=== PATIENT | male | born 1965 | race Caucasian/White ===

== ENCOUNTER 2021-01-17 20:29 | Emergency (ER) | payer MEDICARE, OTHER ==
[2021-01-17 20:32] VITALS: RESP 18; TEMP 98.4
[2021-01-17] MEDS ORDERED: SODIUM CHLORIDE 0.9% 1,000 ML IV STA (20:37)
[2021-01-17] MEDS ORDERED: GLUCAGON 1 MG/ML VIAL IVP STA (20:37)
--- NOTE | 2021-01-17 20:40 | ED ---
General Adult HPI - General Chief complaint: ENT Stated complaint: food in throat Source: patient Mode of arrival: wheelchair Limitations: no limitations - History of Present Illness Initial comments: Dictation was produced using [employer] dictation software. please excuse any grammatical, word or spelling errors. Chief Complaint: 55-year-old male presents with steak in throat History of Present Illness: Patient 55-year-old male. He has history of dysphagia suffered from previous stroke. He was at the [facility] He took a bite of some steak and perhaps did not chew it enough. He swallowed it feels like it stuck in his throat. He states that his trouble swallowing fluids. The ROS documented in this emergency department record has been reviewed and confirmed by me. Those systems with pertinent positive or negative responses have been documented in the HPI. All other systems are other negative and/or noncontributory. PHYSICAL EXAM: General Impression: Alert and oriented x3, acute distress, mildly drooling HEENT: Normocephalic atraumatic, extra-ocular movements intact, pupils equal and reactive to light bilaterally, mucous membranes moist. Cardiovascular: Heart regular rate and rhythm Chest: Able to complete full sentences, no retractions, no tachypnea Abdomen: abdomen soft, non-tender, non-distended, no organomegaly Musculoskeletal: Pulses present and equal in all extremities, no peripheral edema Motor: no focal deficits noted Neurological: CN II-XII grossly intact, no focal motor or sensory deficits noted Skin: Intact with no visualized rashes Psych: Normal affect and mood ED course: 55-year-old male with esophageal foreign body. Vital signs upon arrival are within acceptable limits. Glucagon and soda pop was trialed with no improvement of symptoms. Dr. Ambrose was called. Spoke with Dr. Ambrose at 8:40 PM who will arrange for endoscopy. Endoscopy was performed with removal foreign body. Patient recovered from sedation. Patient be discharged with follow-up to GI clinic. - Related Data Home Medications Medication Instructions Recorded Confirmed Atorvastatin Calcium [Lipitor] 80 mg PO HS 12/05/13 06/21/16 Omeprazole [PriLOSEC] 20 mg PO BID 12/05/13 06/21/16 Ezetimibe [Zetia] 10 mg PO HS 12/31/15 06/21/16 Triamterene/Hydrochlorothiazid 1 tab PO DAILY 12/31/15 06/21/16 [Maxzide 37.5-25] Aspirin 325 mg PO DAILY 06/21/16 06/21/16 HYDROcodone/APAP 10-325MG [[place] 1 tab PO Q8H PRN 06/21/16 06/21/16 10-325] atenoloL [Tenormin] 25 mg PO BID 06/21/16 06/21/16 Previous Rx's Medication Instructions Recorded Nitroglycerin Sl Tabs [Nitrostat] 0.4 mg SUBLINGUAL Q5M PRN #20 tab 08/16/15 Clopidogrel [Plavix] 75 mg PO DAILY #30 tab 01/02/16 Azithromycin [Zithromax] 500 mg PO DAILY #5 tab 06/23/16 Budesonide-Formot 160-4.5 Mcg 2 puff INHALATION BID #1 inhaler 06/23/16 [Symbicort 160-4.5 Mcg Inhaler] Ipratropium-Albuterol Nebulize 3 ml INHALATION RT-QID #120 06/23/16 [Duoneb 0.5 mg-3 mg/3 ml Soln] ampul.neb predniSONE 10 mg PO DIRECTED #30 tab 06/23/16 Allergies Allergy/AdvReac Type Severity Reaction Status Date / Time buprenorphine [From Butrans] Allergy Swelling Verified 01/17/21 20:32 Review of Systems ROS Statement: Those systems with pertinent positive or pertinent negative responses have been documented in the HPI. ROS Other: All systems not noted in ROS Statement are negative. Past Medical History Past Medical History: Coronary Artery Disease (CAD), CVA/TIA, GERD/Reflux, Hyperlipidemia, Hypertension, Myocardial Infarction (MD), Sleep Apnea/CPAP/BIPAP Additional Past Medical History / Comment(s): CVA 07/26/12 with R arm and R leg numbness, EJ with CPAP use, DDD lower back. Last Myocardial Infarction Date:: 2009 History of Any Multi-Drug Resistant Organisms: None Reported Past Surgical History: Heart Catheterization With Stent, Tonsillectomy Additional Past Surgical History / Comment(s): FEEDING TUBE AFTER CVA since removed, Ccath with stent 2009, epidural injections, R wrist tendon surgery, nasal reconstruction, colonoscopy with benign polypectomy. Past Anesthesia/Blood Transfusion Reactions: No Reported Reaction Date of Last Stent Placement:: 2009 Past Psychological History: Anxiety Past Alcohol Use History: None Reported Past Drug Use History: None Reported - Past Family History Father Family Medical History: Coronary Artery Disease (CAD) Additional Family Medical History / Comment(s): Father had CABG Mother Family Medical History: Hyperlipidemia, Hypertension General Exam Limitations: no limitations Course Vital Signs 01/17/21 01/17/21 20:30 22:40 Temperature 98.4 F Pulse Rate 81 67 Respiratory 18 18 Rate Blood Pressure 139/94 98/58 O2 Sat by Pulse 99 95 Oximetry Critical Care Time Critical Care Time: Yes Total Critical Care Time: 33 Disposition Clinical Impression: Esophageal foreign body Disposition: HOME SELF-CARE Condition: Fair Instructions (If sedation given, give patient instructions): Esophageal Foreign Body (ED) Is patient prescribed a controlled substance at d/c from ED?: No Referrals: Renee Ambrose MD [STAFF PHYSICIAN] - 1-2 days
[2021-01-17] MEDS ORDERED: IV FLUID CONTINUATION 200 ML IV ONE ×2 (21:33)
[2021-01-17] MEDS ORDERED: PROPOFOL 10 MG/ML 20 ML VIAL IV ONE (22:00)
[2021-01-17 22:49] VITALS: BP 98/58; PULSE 67
--- NOTE | 2021-01-18 08:16 | CONS ---
CONSULTATION DATE OF SERVICE: 01/17/2021 REQUESTING PHYSICIAN: Dr. Johnathan Pretty REASON FOR CONSULTATION: Acute food impaction. HISTORY OF PRESENT ILLNESS: The patient is a 55-year-old white male with history of CVA in the past with some intermittent dysphagia to solids. Came to the emergency room after having some dinner and could not swallow any further. He was eating steak at a steak house and initially had some difficulty swallowing. He tried to drink some water and could not tolerated it. He continued to have persistent symptoms and hence came to the emergency room and we were consulted for an emergency upper endoscopy. The patient is unable to tolerate his secretions. He feels that the food is stuck in his throat area. He denies any heartburn. He never had these symptoms in the past. Prior history of CVA about 7 years ago at which time he had an EGD and a PEG tube placement that was subsequently removed. PAST MEDICAL HISTORY: Significant for CVA, coronary artery disease, GERD, hypertension, hyperlipidemia and sleep apnea. MEDICATIONS: Medications at home include Lipitor, Prilosec, Zetia, Maxzide, aspirin, [place], Tenormin. ALLERGIES: BUTRANS. PAST SURGICAL HISTORY: Tonsillectomy, cardiac catheterization with stent placement, history of PEG tube in the past. FAMILY HISTORY: Father had coronary artery disease and mother has hypertension and hyperlipidemia. REVIEW OF SYSTEMS: CARDIOPULMONARY: Denies any chest pain or shortness of breath. : No dysuria or hematuria. MUSCULOSKELETAL: Unremarkable. SKIN: Unremarkable. ENDOCRINE: Unremarkable PSYCHIATRIC: Unremarkable. NEUROLOGY: History of CVA in the past. ENT/VISION: Unremarkable. CONSTITUTIONAL: No recent weight loss. No fever, chills, night sweats. PHYSICAL EXAMINATION: VITAL SIGNS: Stable. Blood pressure is 139/94, pulse 81, temperature 98.4. HEENT: Examination unremarkable. Conjunctivae are pink. Sclerae anicteric. Oral cavity no lesions. NECK: No JVD or lymph node enlargement. CHEST: Clear to auscultation. HEART: Regular rate and rhythm. ABDOMEN: Soft, nontender, nondistended. Bowel sounds are positive. EXTREMITIES: No pedal edema. NEURO: He is alert and oriented x3. No focal deficits. LABS: No labs available from today. IMPRESSION: 1. Acute food impaction. The patient has history of cerebrovascular accident in the past and was eating steak for dinner and could not swallow any further. Never had these symptoms before. 2. History of gastroesophageal reflux disease. 3. History of cerebrovascular accident in the past. RECOMMENDATIONS: Will proceed with EGD on an emergency basis for food impaction. He understands the risks, benefits and complications of the procedure. Thank you for this consultation. MMODL / IJN: [id number] /
--- NOTE | 2021-01-18 09:07 | PCN ---
PROCEDURE NOTE DATE OF SERVICE: 01/17/2021 REQUESTING PHYSICIAN: Dr. Johnathan Pretty. HISTORY: Patient is a 55-year-old white male with history of CVA in the past with occasional dysphagia. Came to the emergency room complaining of acute food impaction. He was eating steak for dinner at a restaurant and could not swallow any further. He is scheduled for an upper endoscopy on an emergency basis. PROCEDURE PERFORMED: EGD with for foreign body removal. PREOPERATIVE DIAGNOSIS: Acute food impaction. ANESTHESIA: IV sedation per Anesthesia. DESCRIPTION OF PROCEDURE: After informed consent was obtained from the patient, he was brought into the endoscopy unit. IV conscious sedation was administered by Anesthesia and continuous monitoring. Initially the Olympus GF 180 video endoscope was inserted into the mouth and there was a large piece of meat that was in the pyriform sinus extending into the upper esophageal sphincter. I was able to advance the scope without any difficulty into the esophagus and the entire esophagus appeared normal. At this time, the scope was withdrawn. Using a snare, the piece of meat was held with a snare and gently withdrawn out without any difficulty. Following this, I was able to intubate the esophagus without any difficulty and was gradually advanced the scope into the stomach. There was a large amount of food noted in the stomach from the recent meat. The visualized portions of the stomach appeared normal. I was noted not able to advance scope into the duodenum because of large amount of food near the pyloric area. At this time, the procedure was terminated. The esophagus was carefully examined and appeared entirely normal. Patient tolerated the procedure well. IMPRESSION: 1. Food bolus impacted in the pyriform sinus into the upper esophageal sphincter, status post removal as described above. 2. Normal-appearing esophagus. 3. Large amount of food in the stomach from recent meal. RECOMMENDATIONS: Findings of this examination were discussed with the patient. He will be discharged home after recovery and if he has any recurrent symptoms, he was advised to follow up in the office. MMODL / IJN: [id number] /
== END 2021-01-17 22:50 | disposition home or self-care (01) ==
LOC: EC 20:29
DX: T18.128A Food in esophagus causing other injury, initial encounter (principal); E78.5 Hyperlipidemia, unspecified; I10 Essential (primary) hypertension; I25.10 Atherosclerotic heart disease of native coronary artery without angina pectoris; I25.2 Old myocardial infarction; K21.9 Gastro-esophageal reflux disease without esophagitis; Z79.82 Long term (current) use of aspirin; Z79.899 Other long term (current) drug therapy; Z88.5 Allergy status to narcotic agent
CPT/HCPCS: 99283; 96374; 96361; 43247; J1610; J2704

== ENCOUNTER → 2022-01-29 | Outpatient (CLI) | payer MEDICARE ==
--- NOTE | 2022-01-29 17:31 | MR ---
EXAMINATION TYPE: MR angio head wo/w con DATE OF EXAM: 01/29/2022 COMPARISON: 07/26/2012 HISTORY: family hx ischemic heart disease CONTRAST: 9 mL gadavist TECHNIQUE: Multiplanar multiecho imaging on a 3.0 [place] magnet is performed through the cahto of [place] lis. 3-D wdug-pp-ucvono imaging is performed. Source images are reviewed on the computer in the axi al plane. Reconstructed images rotating on the computer are reviewed. FINDINGS: The internal carotid arteries bifurcate normally into A1 and M1 segments. The A2 segments are normal. Middle cerebral artery branches are normal. Anterior communicating artery is patent. The right posterior communicating artery is absent. The left posterior communicating artery is absent. Vertebrobasilar arteries within the hxeae-mc-kmio are normal. Posterior cerebral vasculature is norm al. No suspicious aneurysm or aneurysmal dilatation is evident. No obstructions are identified. No significant flow-limiting stenosis is evident. IMPRESSIONS: 1. NORMAL MRA [place] OF [place].
== END | disposition home or self-care (01) ==
LOC: RADMRIMAIN 11:21
PROVIDERS: ATTEND Family Medicine
DX: Z09 Encounter for follow-up examination after completed treatment for conditions other than malignant neoplasm (principal); Z82.49 Family history of ischemic heart disease and other diseases of the circulatory system
CPT/HCPCS: 70546; A9585

== ENCOUNTER → 2022-03-11 | Outpatient (CLI) | payer MEDICARE ==
--- NOTE | 2022-03-11 14:53 | CT ---
EXAMINATION TYPE: CT angio chest CT DLP: 639.8 mGycm, Automated exposure control for dose reduction was used. DATE OF EXAM: 03/11/2022 2:34 PM COMPARISON: CT angiogram chest 06/21/2016 CLINICAL INDICATION:Male, 56 years old with history of I71.2 THORACIC AORTIC ANEURYSM W/O RUPTURE; Th oracic Aortic Aneurysm TECHNIQUE/CONTRAST: CTA scan of the thorax is performed without and with IV Contrast, patient injected with 100 mL of Iso alhaji 370, pulmonary embolism protocol. MIP images are created and reviewed. FINDINGS: Lungs/Pleura: Mild centrilobular emphysema changes are seen most pronounced in the lung apices. Groun dglass nodule within the right middle lobe measuring 8 mm. Additional scattered reticulations are see n throughout the lungs. No evidence of focal consolidation, pleural effusion or pneumothorax. Airway: Large airways are patent. Heart: Heart is within normal limits for size.. Vasculature: Mild dilation of the ascending thoracic aorta with diameter measuring up to 4.2 cm. The remainder of the aorta is within normal limits for size. The remainder of the vascular structures do not demonstrate aneurysmal dilation. This is similar dating back to 2016. Mediastinum: No gross evidence of adenopathy. Musculoskeletal: No acute osseous abnormalities, mild multilevel disc degeneration changes are seen t hroughout the spine. Soft Tissues: Unremarkable. Lower neck: No significant findings. Upper Abdomen: Right renal cysts and probable left subcentimeter renal cysts. Scattered atheroscleros is of the arterial vasculature. IMPRESSION: 1. Thoracic aorta fusiform dilation up to 4.2 cm which is stable dating back to 2016. 2. Right middle lobe 8 mm groundglass pulmonary nodule other scattered reticular nodular areas are pr esent today's exam. On prior exam there are more numerous reticular opacities in 2016. Consider low d ose lung screening program if the patient qualifies. 3. Mild COPD changes.
== END | disposition home or self-care (01) ==
LOC: RADCTMAIN 13:38
PROVIDERS: ATTEND Family Medicine
DX: I71.2 Thoracic aortic aneurysm, without rupture (principal)
CPT/HCPCS: 71275; Q9967

== ENCOUNTER 2022-08-06 05:56 | Day surgery (SDC) | payer MEDICARE ==
[2022-08-06] MEDS ORDERED: HEPARIN SODIUM,PORCINE 2,500 UNIT in SODIUM CHLORIDE 0.9% 250 ML IRRIGATION PRN (06:01)
[2022-08-06] MEDS ORDERED: HEPARIN SODIUM,PORCINE 10,000 UNIT in SODIUM CHLORIDE 0.9% 1,000 ML IRRIGATION PRN (06:01)
[2022-08-06] MEDS ORDERED: ALPRAZolam 0.25 MG TAB PO PRN (06:01)
[2022-08-06] MEDS ORDERED: NITROGLYCERIN SL TABS 0.4 MG TAB SUBLINGUAL PRN ×2 (06:01→08:55)
[2022-08-06] MEDS ORDERED: ALPRAZolam 0.5 MG TAB PO PRN (06:01)
[2022-08-06] MEDS ORDERED: SODIUM CHLORIDE 0.9% 1,000 ML IV ONE (06:07)
[2022-08-06 06:36] LABS: Basophils # (A) 0.1 k/uL (0-0.2); Basophils % (A) 1 %; Eosinophils # (A) 0.4 k/uL (0-0.7); Eosinophils % (A) 5 %; HGB 15.9 gm/dL (13.0-17.5); Lymphocytes # (A) 2.4 k/uL (1.0-4.8); Lymphocytes % (A) 25 %; MCH 27.4 pg (25.0-35.0); MCHC 31.7 g/dL (31.0-37.0); MCV 86.2 fL (80.0-100.0); Mean Platelet Volume 7.9; Monocytes # (A) 0.7 k/uL (0-1.0); Monocytes % (A) 7 %; Neutrophils # (A) 5.7 k/uL (1.3-7.7); Neutrophils % (A) 60 %; Platelet Count 216 k/uL (150-450); WBC 9.6 k/uL (3.8-10.6)
[2022-08-06 06:44] LABS: African American GFR (CKD) >90 (>60 ml/min/1.73 sqM); Anion Gap 5 mmol/L; Blood Urea Nitrogen 35 mg/dL (9-20); Carbon Dioxide 30 mmol/L (22-30); Chloride 103 mmol/L (98-107); Glucose 105 mg/dL (74-99); Non-African American GFR(CKD) 79 (>60 ml/min/1.73 sqM); Sodium 138 mmol/L (137-145)
[2022-08-06] MEDS ORDERED: ATORVASTATIN 80 MG TAB PO ONE (07:00)
[2022-08-06] MEDS ORDERED: ASPIRIN 325 MG TAB PO ONE (07:00)
[2022-08-06] MEDS: SODIUM CHLORIDE 0.9% 1,000 ML in EMPTY BAG 1 BAG IV SCH ×2 (07:00→19:12)
[2022-08-06 07:09] LABS: Potassium 4.6 mmol/L (3.5-5.1)
[2022-08-06] MEDS ORDERED: HEPARIN SODIUM 1,000 UN/ML (10ML VL) ONE (07:10)
[2022-08-06] MEDS ORDERED: fentaNYL (PF) 50 MCG/ML 2 ML AMP ONE (07:10)
[2022-08-06] MEDS ORDERED: VERAPAMIL 2.5 MG/ML 2 ML AMP ONE (07:10)
[2022-08-06] MEDS ORDERED: fentaNYL (PF) 50 MCG/1 ML VIAL IVP ONE (07:32)
[2022-08-06] MEDS: MIDAZOLAM 2 MG/2 ML VIAL IVP ONE ×2 (07:35→07:41)
[2022-08-06] MEDS ORDERED: LIDOCAINE 1% INJ 10MG/ML (5 ML VIAL-PF) SQ ONE (07:36)
[2022-08-06] MEDS ORDERED: VERAPAMIL SYRINGE (5 MG/10 ML) INTRAARTER ONE (07:39)
[2022-08-06] MEDS: HEPARIN SODIUM 1,000 UN/ML (10ML VL) IVP ONE ×3 (07:43→08:25)
[2022-08-06] MEDS ORDERED: IOPAMIDOL-370 125ML BTL INJ ONE (08:06)
[2022-08-06] MEDS: NITROGLYCERIN 1000MCG/10ML SYRINGE INTRACORON ONE ×2 (08:16→08:37)
[2022-08-06] MEDS ORDERED: IOPAMIDOL-370 100ML BTL INJ ONE ×2 (08:38→08:43)
[2022-08-06] MEDS ORDERED: RX INFO: IV CONTRAST WAS GIVEN 1 EACH MISC MISCELLANE PRN (08:55)
[2022-08-06] MEDS ORDERED: ZOLPIDEM 5 MG TAB PO PRN (08:55)
[2022-08-06] MEDS ORDERED: ATROPINE SULFATE 0.1 MG/ML 10ML SYRINGE IV PRN (08:55)
[2022-08-06] MEDS ORDERED: MAG HYDROX/AL HYDROX/SIMETH 30 ML CUP PO PRN (08:55)
[2022-08-06] MEDS ORDERED: SODIUM CHLORIDE 0.9% 1,000 ML in EMPTY BAG 1 BAG IV SCH (09:00)
--- NOTE | 2022-08-06 09:06 | P.CARDCATH ---
Date of Procedure: 08/06/22 Description of Procedure: Cardiac Catheterization: The patient is a 57-year-old male with a known history of CAD, status post stenting of the left circumflex in 2009, history of hypertension, hyperlipidemia and diabetes who has been complaining of chest discomfort and had an abnormal MPI. Recommendations were made regarding cardiac catheterization, the risks and the complications were discussed with the patient who is in full understanding and agreement. Procedure Description: Patient was brought to cathode builder in fasting semi-sedated state after receiving Fentanyl and Benadryl achieiving moderate conscious sedated state. Using Xylocaine Anesthesia and Seldinger technique, a 6-[place]ib[place] sheath was introduced in the right radial artery . Subsequently, selective coronary angiography was performed using a 5-[place]ib[place] 3.5 bend Yoana catheter. Multiple views of the coronary artery including hemiaxial views were obtained. The 5-[place]ib[place] pigtail catheter was used to cross the aortic valve and LVEDP was calculated. After obtaining the images discussion with the patient were done regarding staged angioplasty versus CABG. The patient was in favor of staged angioplasty. After removing the catheters a 6-[place] EBU 3.75 guiding catheter was introduced and the left main was cannulated, a 0.014 BMW J-wire was advanced into the distal OM1 and subsequently a 3.0 x 12 mm NC Treck balloon was advanced and inflation at 8 jose was done. After removing the balloon an [place] Eye IVUS catheter was advanced and imaging were obtained. After removing the catheter a 4.0 X18 mm Xience rivera point stent was advanced and deployed at 14 jose. Images were obtained after removing the wire and it revealed stable successful stenting. Subsequently the guiding catheter was removed and a 6-[place]ib[place] 0.75 AL guiding catheter was advanced and the right coronary ostium was cannulated, a 0.014 BMW J-wire was positioned in the distal PDA and subsequently intravascular images were obtained after removing the catheter a 3.0 X18 mm Xience rivera point stent was advanced and deployed at 16 jose. After removing the wire images were obtained and revealed stable successful stenting. Following that, catheter and sheath were removed. Hemostasis was obtained with deployment of TR band . There was no immediate complication. Patient was returned to room in stable condition. Of note, the patient received a total of 8000 units of intravenous heparin as well as intra-arterial verapamil. He was continued on clopidogrel. His ACT was followed. He had chest discomfort but no significant EKG changes. His chest discomfort improved at the end of the procedure. Findings: Left main: This is a large size vessel, bifurcating into LAD and left circumflex, left main has no high-grade stenosis LAD: This vessel is totally occluded at the takeoff of the first septal hydrator operator with no significant antegrade flow. Left circumflex: This is a large size vessel nondominant the mid left circumflex at the stented segment has a 95% stenosis the first obtuse marginal branch has no high-grade stenosis in the distal left circumflex was totally occluded with no antegrade flow. RCA: This is a large dominant vessel bifurcating distally to PDA and PLV the proximal and mid RCA has 20-30% plaque the right PDA has an 80% stenosis. The rest of the vessel has no high-grade stenosis. Collaterals: Collaterals to the LAD were noted from the right PDA as well as to the distal left circumflex Left Ventriculogram: Not performed Hemodynamics: There was no gradient across the aortic valve, LVEDP was 18-20 mmHg Conclusion: 1. Chronically occluded proximal LAD with collaterals from the RCA 2. Critical stenosis in the mid left circumflex 3. Severe stenosis in the right PDA 4. Successful stenting of the mid left circumflex with reduction of stenosis from 95% with 0% with intravascular ultrasound imaging 5. Successful stenting of the right PDA with reduction of the stenosis from 80% to 0% with intravascular ultrasound imaging Recommendations: The patient will be continued on aspirin and clopidogrel for at least 6 months he'll be evaluated to undergo recanalization of a chronically occluded LAD at a staged procedure. Aggressive coronary risk modifications will be continued. The findings and the recommendations were discussed with the patient and the family and they were in full understanding and agreement. Duration of sedation is 65 minutes.
[2022-08-06] MEDS: ISOSORBIDE MONONITRATE ER 30 MG TAB.ER.24H PO SCH (13:02)
[2022-08-06] MEDS: ASPIRIN 81 MG PO SCH (13:03)
[2022-08-06] MEDS: atenoloL 50 MG TAB PO SCH ×2 (13:03→20:54)
[2022-08-06] MEDS ORDERED: ATORVASTATIN 80 MG TAB PO SCH (21:00)
[2022-08-07] MEDS: SODIUM CHLORIDE 0.9% 1,000 ML in EMPTY BAG 1 BAG IV SCH (03:58)
[2022-08-07 06:43] LABS: African American GFR (CKD) 81 (>60 ml/min/1.73 sqM); Anion Gap 2 mmol/L; Blood Urea Nitrogen 30 mg/dL (9-20); Calcium 8.5 mg/dL (8.4-10.2); Carbon Dioxide 31 mmol/L (22-30); Chloride 107 mmol/L (98-107); Glucose 98 mg/dL (74-99); Non-African American GFR(CKD) 70 (>60 ml/min/1.73 sqM); Potassium 4.2 mmol/L (3.5-5.1); Sodium 140 mmol/L (137-145)
[2022-08-07 07:21] VITALS: BP 111/76; PULSE 66; RESP 16; TEMP 97.9
[2022-08-07] MEDS ORDERED: PANTOPRAZOLE 40 MG TABLET PO SCH (07:30)
[2022-08-07] MEDS ORDERED: CLOPIDOGREL 75 MG TAB PO SCH (09:00)
[2022-08-07] MEDS: ISOSORBIDE MONONITRATE ER 30 MG TAB.ER.24H PO SCH (09:25)
[2022-08-07] MEDS: atenoloL 50 MG TAB PO SCH (09:25)
[2022-08-07] MEDS: ASPIRIN 81 MG PO SCH (09:25)
--- NOTE | 2022-08-07 09:42 | P.PN ---
Subjective Progress Note Date: 08/07/22 PROGRESS NOTE The patient is a 49 year old male is a known history of CAD who presented with symptoms of angina pectoris, had an abnormal MPI. Underwent cardiac catheterization and was found to have significant obstructive disease involving the left circumflex and right PDA was chronically occluded LAD and collaterals from the left system. He underwent stenting of the left circumflex and right PDA and the plan is to proceed with staged PCI of chronically occluded LAD. He's feeling better today, ambulating without difficulties and without any chest discomfort. He continues to be in sinus mechanism. Medications: Aspirin, Plavix, Imdur 30 mg daily, Lipitor 80 mg daily, atenolol 50 mg twice a day PHYSICAL EXAMINATION: Blood pressure 111/70 heart rate 60 LUNGS: Clear to auscultation HEART: Regular rate and rhythm, S1, S2. No S3. No systolic murmur ABDOMEN: Soft, nontender, no organomegaly EXTREMETIES: No edema, right radial pulse intact LAB: EKG showed sinus mechanism with no acute changes. Creatinine 1.15 IMPRESSION: 1. Status post stenting of left circumflex and RCA 2. Chronically occluded LAD 3. Hypertension 4. Hyperlipidemia 5. Chronic tobacco use PLAN: 1. Smoking cessation 2. Continue present therapy 3. Discharged home today 4. The patient will be readmitted at a later time to undergo PCI of the chronically occluded LAD Objective - Vital Signs Vital signs: Vital Signs Temp 97.9 F 08/07/22 07:00 Pulse 66 08/07/22 07:00 Resp 16 08/07/22 07:00 BP 111/76 08/07/22 07:00 Pulse Ox 98 08/07/22 07:57 FiO2 Intake & Output 08/06/22 08/07/22 08/07/22 18:59 06:59 18:59 Intake Total 840 240 Balance 840 240 Weight 92.9 kg Intake: IV 600 Oral 240 240 Other: Voiding Method Toilet # Voids 1 2 - Labs CBC & Chem 7: 08/06/22 06:15 08/07/22 06:04 Labs: Abnormal Lab Results - Last 24 Hours (Table) 08/07/22 Range/Units 06:04 Carbon Dioxide 31 H (22-30) mmol/L BUN 30 H (9-20) mg/dL
== END 2022-08-07 10:17 | disposition home or self-care (01) ==
LOC: CATHCVL 05:56 → 6NMEDSUR 12:29 → CATHCVL 08-07 10:17
PROVIDERS: ATTEND Internal Medicine Interventional Cardiology
DX: I25.10 Atherosclerotic heart disease of native coronary artery without angina pectoris (principal); I10 Essential (primary) hypertension; E78.5 Hyperlipidemia, unspecified; E11.9 Type 2 diabetes mellitus without complications; Q25.0 Patent ductus arteriosus; Z95.5 Presence of coronary angioplasty implant and graft; Z79.84 Long term (current) use of oral hypoglycemic drugs; Z79.899 Other long term (current) drug therapy
CPT/HCPCS: 94760; 92978; 93458; 80048 ×2; 85025; C9600; C9601; C1769 ×2; C1887 ×2; C1894; C1753; C1874 ×2; C1725; J2250; J2001; J1644; Q9967 ×2; J3010

== ENCOUNTER 2022-08-16 18:49 | Observation (INO) | payer MEDICARE ==
[2022-08-16 20:17] LABS: Basophils # (A) 0.1 k/uL (0-0.2); Basophils % (A) 1 %; Eosinophils # (A) 0.4 k/uL (0-0.7); Eosinophils % (A) 4 %; HCT 47.2 % (39.0-53.0); Lymphocytes % (A) 25 %; MCH 28.9 pg (25.0-35.0); MCHC 33.9 g/dL (31.0-37.0); MCV 85.2 fL (80.0-100.0); Mean Platelet Volume 7.6; Monocytes # (A) 0.6 k/uL (0-1.0); Monocytes % (A) 7 %; Neutrophils # (A) 5.1 k/uL (1.3-7.7); Neutrophils % (A) 61 %; Platelet Count 223 k/uL (150-450); RBC 5.54 m/uL (4.30-5.90); RDW 12.8 % (11.5-15.5); WBC 8.4 k/uL (3.8-10.6)
--- NOTE | 2022-08-16 20:26 | XR ---
EXAMINATION TYPE: XR chest 2V DATE OF EXAM: 08/16/2022 COMPARISON: 04/19/2022 HISTORY: Chest pain TECHNIQUE: FINDINGS: Heart and mediastinum are normal. Lungs are clear. Diaphragm is normal. Bony thorax is inta ct. There are chest leads. IMPRESSION: Normal chest. No change.
[2022-08-16 20:32] LABS: INR 0.9 (<1.2); Partial Thromboplastin Time 23.4 sec (22.0-30.0); Prothrombin Time 9.6 sec (9.0-12.0)
[2022-08-16 20:37] LABS: Albumin 4.3 g/dL (3.5-5.0); Calcium 9.3 mg/dL (8.4-10.2); Magnesium 2.1 mg/dL (1.6-2.3); Potassium 3.6 mmol/L (3.5-5.1); Total Bilirubin 0.4 mg/dL (0.2-1.3)
[2022-08-16] MEDS ORDERED: ASPIRIN 81 MG PO STA (22:05)
[2022-08-16] MEDS ORDERED: NITROGLYCERIN SL TABS 0.4 MG TAB SUBLINGUAL STA (22:05)
--- NOTE | 2022-08-16 22:05 | ED ---
General Adult HPI - General Chief complaint: Chest Pain Stated complaint: chest pain Time Seen by Provider: 08/16/22 21:30 Source: patient, RN notes reviewed, old records reviewed Mode of arrival: ambulatory Limitations: no limitations - History of Present Illness Initial comments: Patient is a 57-year-old male with past medical history remarkable for CAD with multiple stents, scheduled for another stent within the next week, COPD, tobacco use, hypertension, hyperlipidemia, prior MIs, who presents emergency Department planning of a daylong history of chest pain. States it is left-sided, sharp and achy in nature. Comes and goes. No known associated symptoms. Denies shortness of breath, diaphoresis, nausea, vomiting when it is there. No known palliative or provocative factors. Patient called his electric hoist operator to told him to come to the emergency department for evaluation. Denies any fevers, chills, cough, sick contacts. Denies any nausea, vomiting, abdominal pain. His no other acute complaints at this time. Presents for evaluation of this chest pain. - Related Data Home Medications Medication Instructions Recorded Confirmed Atorvastatin Calcium [Lipitor] 80 mg PO HS 12/05/13 08/06/22 Omeprazole [PriLOSEC] 20 mg PO BID 12/05/13 08/03/22 Triamterene/Hydrochlorothiazid 1 tab PO DAILY 12/31/15 08/03/22 [Maxzide 37.5-25] Aspirin 325 mg PO DAILY 06/21/16 08/03/22 atenoloL [Tenormin] 50 mg PO BID 06/21/16 08/03/22 Ipratropium-Albuterol Nebulize 3 ml INHALATION RT-QID PRN 08/03/22 08/06/22 [Duoneb 0.5 mg-3 mg/3 ml Soln] Isosorbide Mononitrate ER [Imdur] 30 mg PO DAILY 08/03/22 08/03/22 Previous Rx's Medication Instructions Recorded Nitroglycerin Sl Tabs [Nitrostat] 0.4 mg SUBLINGUAL Q5M PRN #20 tab 08/16/15 Clopidogrel [Plavix] 75 mg PO DAILY #30 tab 01/02/16 Allergies Allergy/AdvReac Type Severity Reaction Status Date / Time buprenorphine [From Jennifer] Allergy Swelling Verified 08/16/22 18:58 Review of Systems ROS Statement: Those systems with pertinent positive or pertinent negative responses have been documented in the HPI. Review of Systems: CONST: Denies fever EYES: Denies blurry vision ENT: Denies nasal congestion C/V: Endorses chest pain RESP: Denies shortness of breath GI: Denies abdominal pain : Denies dysuria SKIN: Denies rash. MSK: Denies joint pain. NEURO: Denies headache ROS Other: All systems not noted in ROS Statement are negative. Past Medical History Past Medical History: Coronary Artery Disease (CAD), Chest Pain / Angina, COPD, CVA/TIA, GERD/Reflux, Hyperlipidemia, Hypertension, Myocardial Infarction ([place]), Sleep Apnea/CPAP/BIPAP Additional Past Medical History / Comment(s): 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 after stroke, colonoscopy with benign polypectomy. Past Anesthesia/Blood Transfusion Reactions: No Reported Reaction Date of Last Stent Placement:: 2009 Past Psychological History: Anxiety Smoking Status: Current every day smoker Past Alcohol Use History: Rare Past Drug Use History: None Reported - Past Family History Father Family Medical History: Coronary Artery Disease (CAD) Additional Family Medical History / Comment(s): Father had CABG Mother Family Medical History: Hyperlipidemia, Hypertension General Exam - General Exam Comments Initial Comments: General: Appears in no acute distress. HEAD: Normal with no signs of head trauma. EYES: PERRLA, EOMI, conjunctiva normal, no discharge. ENT: Hearing grossly intact, normal oropharynx. RESPIRATORY: Clear breath sounds bilaterally. No wheezes, rales, or rhonchi. C/V: Regular rate and rhythm. S1 and S2 auscultated, no edema, peripheral puls es 2+ and intact throughout. chest pain nonreproducible on palpation. ABD: Abd is soft, nontender, nondistended EXT: Normal range of motion, no obvious deformity SKIN: No rashes or lesions observed on exposed skin. NEURO: Alert and oriented 4. No focal deficits. Limitations: no limitations Course Vital Signs 08/16/22 08/16/22 08/16/22 18:55 20:00 21:00 Temperature 98 F Pulse Rate 78 77 77 Respiratory 18 16 16 Rate Blood Pressure 144/75 123/85 116/84 O2 Sat by Pulse 98 95 98 Oximetry Medical Decision Making - Medical Decision Making Based on the patient's presentation and physical exam, I'm concerned for cardiopulmonary etiology for his current symptoms. He does have a significant cardiac history. I evaluated the patient after workup was completed. He was placed in room 27. At this time patient is symptom-free. We discussed his workup that was already obtained that I was in agreement with, which consisted of basic labs, troponin, EKG, chest x-ray. Workup was remarkable for an undetectable troponin. Remainder of his labs are unremarkable. EKG showed no acute changes, no acute ischemic process. chest x-ray revealed no acute cardiopulmonary process, infiltrate. Vital signs within except for limits. Patient's heart score is elevated to 4. This coupled with his significant cardiac history I discussed with him that I would like to admit him to observation telemetry. He was in agreement with this plan. We'll trend is troponin. Cardiology will be consulted. He was given an aspirin 324 milligrams. SL nitro was ordered in the event that his chest pain does return. I spoke with the admitting physician, Dr. ortega who accepted the patient. Patient was admitted to observation telemetry. Was pt. sent in by a medical professional or institution (, PA, FACTORY ENGINEER, urgent care, hospital, or shelter...) When possible be specific @ -Yes, his electric hoist operator Dr. Huang Did you speak to anyone other than the patient for history (EMS, parent, family, police, friend...)? What history was obtained from this source @ -No Did you review nursing and triage notes (agree or disagree)? Why? @ -I reviewed and agree with nursing and triage notes Were old charts reviewed (outside hosp., previous admission, EMS record, old EKG, old radiological studies, urgent care reports/EKG's, shelter records)? Report findings @ -Yes. Old charts, catheterization Reports, EKGs were reviewed. Differential Diagnosis (chest pain, altered mental status, abdominal pain women, abdominal pain men, vaginal bleeding, weakness, fever, dyspnea, syncope, he adache, dizziness, GI bleed, back pain, seizure, CVA, palpatations, mental health)? @ -Differential Chest Pain: Stable Angina, Unstable Angina, STEMI, NSTEMI Aortic Dissection, Pneumothorax, Musculoskeletal, Esophageal Spasm GERD, Cholecystitis, Pancreatitis, Zoster, this is not meant to be an all-inclusive list. EKG interpreted by me (3pts min.). @ -As above X-rays interpreted by me (1pt min.). @ -Chest x-ray revealed no acute cardio pulmonary process, infiltrate CT interpreted by me (1pt min.). @ -None done U/S interpreted by me (1pt. min.). @ -None done What testing was considered but not performed or refused? (CT, X-rays, U/S, labs)? Why? @ -None What meds were considered but not given or refused? Why? @ -None Did you discuss the management of the patient with other professionals (professionals i.e. , PA, FACTORY ENGINEER, lab, RT, psych nurse, renal social worker, senior category manager, teacher, security public safety officer, watch case polisher)? Give summary @ -Yes, admitting physician Dr. Ortega who was in agreement with the plan. Was smoking cessation discussed for >3mins.? @ -No Was critical care preformed (if so, how long)? @ -No Were there social determinants of health that impacted care today? How? (Homelessness, low income, unemployed, alcoholism, drug addiction, transportation, low edu. Level, literacy, decrease access to med. care, [facility], rehab)? @ -No Was there de-escalation of care discussed even if they declined (Discuss DNR or withdrawal of care, Hospice)? DNR status @ -No What co-morbidities impacted this encounter? (DM, HTN, Smoking, COPD, CAD, Cancer, CVA, ARF, Chemo, Hep., AIDS, mental health diagnosis, sleep apnea, morbid obesity)? @ -CAD Was patient admitted / discharged? Hospital course, mention meds given and route, prescriptions, significant lab abnormalities, going to OR and other pertinent info. @ -Patient was admitted to observation telemetry. See above for emergency Department course. Undiagnosed new problem with uncertain prognosis? @ -No Drug Therapy requiring intensive monitoring for toxicity (Heparin, Nitro, Insulin, Cardizem)? @ -No Were any procedures done? @ -No Diagnosis/symptom? @ -Chest pain Acute, or Chronic, or Acute on Chronic? @ -Acute on chronic Uncomplicated (without systemic symptoms) or Complicated (systemic symptoms)? @ -Uncomplicated Side effects of treatment? @ -No Exacerbation, Progression, or Severe Exacerbation? @ -No Poses a threat to life or bodily function? How? (Chest pain, [place], MA, pneumonia, PE, COPD, DKA, ARF, appy, cholecystitis, CVA, Diverticulitis, Homicidal, Suicidal, threat to staff... and all critical care pts) @ -Yes, chest pain could be a result of his history of CAD which if that progressively worsens could result in significant morbidity and mortality. - Lab Data Result diagrams: 08/16/22 19:41 08/16/22 19:41 Lab Results 08/16/22 08/16/22 08/16/22 Range/Units 19:41 19:41 19:41 WBC 8.4 (3.8-10.6) k/uL RBC 5.54 (4.30-5.90) m/uL Hgb 16.0 (13.0-17.5) gm/dL Hct 47.2 (39.0-53.0) % MCV 85.2 (80.0-100.0) fL MCH 28.9 (25.0-35.0) pg MCHC 33.9 (31.0-37.0) g/dL RDW 12.8 (11.5-15.5) % Plt Count 223 (150-450) k/uL MPV 7.6 Neutrophils % 61 % Lymphocytes % 25 % Monocytes % 7 % Eosinophils % 4 % Basophils % 1 % Neutrophils # 5.1 (1.3-7.7) k/uL Lymphocytes # 2.0 (1.0-4.8) k/uL Monocytes # 0.6 (0-1.0) k/uL Eosinophils # 0.4 (0-0.7) k/uL Basophils # 0.1 (0-0.2) k/uL PT 9.6 (9.0-12.0) sec INR 0.9 (<1.2) APTT 23.4 (22.0-30.0) sec Sodium 141 (137-145) mmol/L Potassium 3.6 (3.5-5.1) mmol/L Chloride 105 (98-107) mmol/L Carbon Dioxide 30 (22-30) mmol/L Anion Gap 6 mmol/L BUN 32 H (9-20) mg/dL Creatinine 1.11 (0.66-1.25) mg/dL Est GFR (CKD-EPI)AfAm 84 (>60 ml/min/1.73 sqM) Est GFR (CKD-EPI)NonAf 73 (>60 ml/min/1.73 sqM) Glucose 114 H (74-99) mg/dL Calcium 9.3 (8.4-10.2) mg/dL Magnesium 2.1 (1.6-2.3) mg/dL Total Bilirubin 0.4 (0.2-1.3) mg/dL AST 35 (17-59) U/L ALT 43 (4-49) U/L Alkaline Phosphatase 97 (38-126) U/L Troponin I (0.000-0.034) ng/mL Total Protein 7.0 (6.3-8.2) g/dL Albumin 4.3 (3.5-5.0) g/dL 08/16/22 Range/Units 19:41 WBC (3.8-10.6) k/uL RBC (4.30-5.90) m/uL Hgb (13.0-17.5) gm/dL Hct (39.0-53.0) % MCV (80.0-100.0) fL MCH (25.0-35.0) pg MCHC (31.0-37.0) g/dL RDW (11.5-15.5) % Plt Count (150-450) k/uL MPV Neutrophils % % Lymphocytes % % Monocytes % % Eosinophils % % Basophils % % Neutrophils # (1.3-7.7) k/uL Lymphocytes # (1.0-4.8) k/uL Monocytes # (0-1.0) k/uL Eosinophils # (0-0.7) k/uL Basophils # (0-0.2) k/uL PT (9.0-12.0) sec INR (<1.2) APTT (22.0-30.0) sec Sodium (137-145) mmol/L Potassium (3.5-5.1) mmol/L Chloride (98-107) mmol/L Carbon Dioxide (22-30) mmol/L Anion Gap mmol/L BUN (9-20) mg/dL Creatinine (0.66-1.25) mg/dL Est GFR (CKD-EPI)AfAm (>60 ml/min/1.73 sqM) Est GFR (CKD-EPI)NonAf (>60 ml/min/1.73 sqM) Glucose (74-99) mg/dL Calcium (8.4-10.2) mg/dL Magnesium (1.6-2.3) mg/dL Total Bilirubin (0.2-1.3) mg/dL AST (17-59) U/L ALT (4-49) U/L Alkaline Phosphatase (38-126) U/L Troponin I <0.012 (0.000-0.034) ng/mL Total Protein (6.3-8.2) g/dL Albumin (3.5-5.0) g/dL - EKG Data -: EKG Interpreted by Me EKG Comments: 12-lead Electrocardiogram Interpretation Note EKG was reviewed and interpreted by myself. 12-lead ECG performed at 1902 is interpreted by me as revealing normal sinus rhythm at a rate of 75 beats per minute. [place] is normal. TX interval is 180 ms, QRS duration is 104 ms, QTc is 397 ms.. There were no ST or T wave abnormalities to suggest myocardial ischemia or injury. R wave progression across the precordium was satisfactory. By my interpretation this EKG is non-diagnostic for acute ischemia. When compared with EKG from August 07, 2022, no significant change. Disposition Clinical Impression: Chest pain Disposition: ADMITTED IP TO THIS HOSP Condition: Stable Referrals: Ko Abbott DO [Primary Care Provider] - 1-2 days Time of Disposition: 22:00
[2022-08-16] MEDS ORDERED: NALOXONE 0.4 MG/ML 1 ML VIAL IV PRN (22:19)
[2022-08-16] MEDS ORDERED: IPRATROPIUM-ALBUTEROL 3 ML NEB INHALATION PRN (22:21)
[2022-08-16] MEDS ORDERED: ATORVASTATIN 80 MG TAB PO SCH (22:30)
[2022-08-16] MEDS: atenoloL 25 MG TAB PO SCH (23:34)
[2022-08-16] MEDS: PANTOPRAZOLE 40 MG TABLET PO SCH (23:35)
[2022-08-17] MEDS ORDERED: HEPARIN SODIUM,PORCINE/PF 5,000 UNIT/0.5 ML SYRINGE SQ SCH
[2022-08-17] MEDS ORDERED: HEPARIN SODIUM 1,000 UN/ML (10ML VL) IV ONE (00:16)
[2022-08-17] MEDS ORDERED: HEPARIN SODIUM 1,000 UN/ML (10ML VL) IV PRN (00:16)
--- NOTE | 2022-08-17 00:18 | P.HPIM ---
History of Present Illness H&P Date: 08/16/22 The patient is a 49-year-old male with a PMH of CAD status post multiple stents, recently underwent stenting of left circumflex and RCA on 08/06/22, COPD, hypertension, hyperlipidemia who presented to the emergency room with complaints of chest pain. The patient reports that his chest pain started shortly after he began working out, lifting weights earlier today. He reports that it is left- sided, pressure-like, 8 out of 10 on maximal intensity prior to arrival, currently 4 out of 10, nonradiating, with some associated shortness of breath. Denies experiencing nausea, vomiting, palpitations, or dizziness. Also denied lower extremity swelling or pain. States that his symptoms are very similar to his prior episodes of RI. EKG emergency room revealed sinus rhythm at 75 bpm with Q waves in lead 2, and V5 to V6. Laboratory evaluation is remarkable for troponin less than 0.012 with chest x-ray unremarkable. The case was discussed in detail with the ED physician. The patient reports compliance with aspirin and Plavix at home since the stent placements. Review of systems: Pertinent positives and negatives as discussed in HPI, a complete review of systems was performed and all other systems are negative. Physical examination: General: non toxic, no distress, appears at stated age, normal weight Derm: no unusual rashes/lesions, warm Head: atraumatic, normocephalic, symmetric Eyes: EOMI, no lid lag, anicteric sclera, pupils equal round reactive to light ENT: Nose and ears atraumatic Neck: No cervical lymphadenopathy, trachea midline, supple Mouth: no lip lesion, mucus membranes moist Cardiovascular: S1S2 reg, no murmur, positive dorsalis pedis pulse bilateral, no edema Lungs: CTA bilateral, no rhonchi, no rales, no accessory muscle use Abdominal: soft, nontender to palpation, no guarding Ext: muscle strength 5 out of 5 in all 4 extremities grossly, no gross muscle atrophy, no contractures, Neuro: CN II-XI grossly intact, no gross focal neuro deficits Psych: Alert, oriented, appropriate affect Assessment/plan Unstable angina -Start heparin infusion -Status post aspirin in the emergency room -Cardiology consulted -Serial EKGs -Trend troponin -Cardiac monitoring Chronic conditions: COPD, hypertension, hyperlipidemia -Continue with home meds DVT prophylaxis -Heparin infusion The patient is admitted with an anticipated less than 2 midnight stay for evaluation of unstable angina CODE STATUS: Full Code Discussed with: Patient Anticipated discharge date: in am Anticipated discharge place: Home Past Medical History Past Medical History: Coronary Artery Disease (CAD), Chest Pain / Angina, COPD, CVA/TIA, GERD/Reflux, Hyperlipidemia, Hypertension, Myocardial Infarction ([place]), Sleep Apnea/CPAP/BIPAP Additional Past Medical History / Comment(s): 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 after stroke, colonoscopy with benign polyp ectomy. Past Anesthesia/Blood Transfusion Reactions: No Reported Reaction Date of Last Stent Placement:: 2009 Past Psychological History: Anxiety Additional Psychological History / Comment(s): Pt resides with his spouse and children. He is independent. He drives. Smoking Status: Current every day smoker Past Alcohol Use History: Rare Additional Past Alcohol Use History / Comment(s): Pt started smoking at age 15 yrs (1979). He is a 1 ppd or less smoker. Past Drug Use History: None Reported Additional Drug Use History / Comment(s): NO DRUGS IN OVER 30 YRS - Past Family History Father Family Medical History: Coronary Artery Disease (CAD) Additional Family Medical History / Comment(s): Father had CABG Mother Family Medical History: Hyperlipidemia, Hypertension Medications and Allergies Home Medications Medication Instructions Recorded Confirmed Type Atorvastatin Calcium [Lipitor] 80 mg PO HS 12/05/13 08/16/22 History Omeprazole [PriLOSEC] 20 mg PO BID 12/05/13 08/16/22 History Nitroglycerin Sl Tabs [Nitrostat] 0.4 mg SUBLINGUAL Q5M PRN #20 tab 08/16/15 08/16/22 Rx Triamterene/Hydrochlorothiazid 1 tab PO DAILY 12/31/15 08/16/22 History [Maxzide 37.5-25] Clopidogrel [Plavix] 75 mg PO DAILY #30 tab 01/02/16 08/16/22 Rx Aspirin 325 mg PO DAILY 06/21/16 08/16/22 History Isosorbide Mononitrate ER [Imdur] 30 mg PO DAILY 08/03/22 08/16/22 History Testosterone Cypionate 50 mg IM MO 08/16/22 08/16/22 History [Depo-Testosterone] atenoloL [Tenormin] 50 mg PO BID 08/16/22 08/16/22 History Allergies Allergy/AdvReac Type Severity Reaction Status Date / Time buprenorphine [From Butrans] Allergy Swelling Verified 08/16/22 22:39 Physical Exam Vitals: Vital Signs Temp Pulse Resp BP Pulse Ox 08/16/22 22:00 71 16 120/87 97 08/16/22 21:00 77 16 116/84 98 08/16/22 20:00 77 16 123/85 95 08/16/22 18:55 98 F 78 18 144/75 98 Intake and Output 08/16/22 08/16/22 08/17/22 14:59 22:59 06:59 Other: Weight 97.069 kg 97.069 kg Results CBC & Chem 7: 08/16/22 19:41 08/16/22 19:41 Labs: Abnormal Lab Results - Last 24 Hours (Table) 08/16/22 Range/Units 19:41 BUN 32 H (9-20) mg/dL Glucose 114 H (74-99) mg/dL Thrombosis Risk Factor Assmnt - Choose All That Apply Each Factor Represents 1 point: Age 41-60 years, Obesity (BMI >25) Thrombosis Risk Factor Assessment Total Risk Factor Score: 2 Thrombosis Risk Factor Assessment Level: Low Risk
[2022-08-17] MEDS ORDERED: HEPARIN SOD,PORK IN 0.45% NACL 25,000 UNIT in 0.45% NACL 1 250ML.BAG IV SCH (00:30)
[2022-08-17 06:37] LABS: Basophils # (A) 0.1 k/uL (0-0.2); Basophils % (A) 1 %; Eosinophils # (A) 0.5 k/uL (0-0.7); Eosinophils % (A) 6 %; HCT 46.6 % (39.0-53.0); HGB 15.4 gm/dL (13.0-17.5); Lymphocytes % (A) 27 %; MCH 28.5 pg (25.0-35.0); MCHC 33.1 g/dL (31.0-37.0); MCV 86.1 fL (80.0-100.0); Mean Platelet Volume 7.8; Monocytes # (A) 0.6 k/uL (0-1.0); Monocytes % (A) 8 %; Neutrophils # (A) 4.1 k/uL (1.3-7.7); Neutrophils % (A) 55 %; Platelet Count 197 k/uL (150-450); RBC 5.41 m/uL (4.30-5.90); WBC 7.4 k/uL (3.8-10.6)
[2022-08-17 06:56] VITALS: BP 123/76; PULSE 63; RESP 16; TEMP 97.7
[2022-08-17 07:00] LABS: Calcium 8.6 mg/dL (8.4-10.2); Potassium 3.9 mmol/L (3.5-5.1)
[2022-08-17] MEDS ORDERED: ASPIRIN 81 MG PO SCH (09:00)
[2022-08-17] MEDS ORDERED: ISOSORBIDE MONONITRATE ER 30 MG TAB.ER.24H PO SCH (09:00)
[2022-08-17] MEDS ORDERED: CLOPIDOGREL 75 MG TAB PO SCH (09:00)
[2022-08-17] MEDS ORDERED: TRIAMTERENE-HCTZ 37.5-25MG 1 EACH TAB PO SCH (09:00)
[2022-08-17] MEDS: PANTOPRAZOLE 40 MG TABLET PO SCH (09:13)
[2022-08-17] MEDS: atenoloL 25 MG TAB PO SCH (09:13)
--- NOTE | 2022-08-17 09:35 | P.CRDCN ---
History of Present Illness Consult date: 08/17/22 History of present illness: HISTORY OF PRESENT ILLNESS: This is a 57-year-old male with a past medical history significant for hypertension, hyperlipidemia, and coronary artery disease with recent PCI to circumflex and PDA. Patient follows in the office with Dr. Huang. We have been asked to see the patient in consultation for chest pain. Patient examined at the bedside. Patient states yesterday morning he woke up and went to the gym and was doing some cardio. He denied having any discomfort while he was exercising. He states later in the day he began having pain in the middle of his chest. He states the pain felt like an aching sensation and was present on and off throughout the day. He states that he took a few aspirin when it first started with which improved his symptoms and then the pain came back again. He states the pain is worse when he lays on his left or his right side but if he lays on his back the pain was away. The patient is also known to have an occluded LAD and is scheduled for heart catheterization on 08/26/2022 * EKG reveals sinus mechanism with no signs of acute ischemia * Chest xray negative for acute process * Laboratory data: WBC 7.4. Hemoglobin 15.4. Platelet count 197. Sodium 140. Potassium 3.9. BUN 29. Creatinine 1.08. Magnesium 2.1. Troponin negative 2 * Current home cardiac medications include aspirin 325 mg daily, Lipitor 80 mg at night, Plavix 75 mg daily, atenolol 50 mg twice a day, Imdur 30 mg daily, Maxzide 37.5-25mg daily REVIEW OF SYSTEMS: At the time of my exam: CONSTITUTIONAL: Denies fever or chills. HEENT: Denies blurred vision, vision changes, or eye pain. Denies hemoptysis CARDIOVASCULAR: Denies chest pain. Denies orthopnea. Denies PND. Denies palpitations RESPIRATORY: Denies shortness of breath. GASTROINTESTINAL: Denies abdominal pain. Denies nausea or vomiting. HEMATOLOGIC: Denies bleeding disorders. GENITOURINARY: Denies any blood in urine. SKIN: Denies pruitis. Denies rash. PHYSICAL EXAM: VITAL SIGNS: Reviewed. GENERAL: Well-developed in no acute distress. HEENT: Head is normocephalic. Pupils are equal, round. Sclerae anicteric. Mucous membranes of the mouth are moist. Neck supple. No JVD or thyromegaly LUNGS: Respirations even and unlabored. Lungs essentially clear to auscultation bilaterally. HEART: Regular rate and rhythm. S1 and S2 heard. ABDOMEN: Soft. Nondistended. Nontender. EXTREMITIES: Normal range of motion. No clubbing or cyanosis. Peripheral pulses intact. No lower extremity edema NEUROLOGIC: Awake and alert. Oriented x 3. ASSESSMENT: Chest pain, atypical, worse with changing of positions, troponin negative 3 Coronary artery disease with recent PCI to circumflex and PDA Known occlusion of LAD, scheduled for cardiac catheterization 08/26/2022 Hypertension Hyperlipidemia PLAN: An acute coronary event has been ruled out Resume home cardiac medications Continue dual antiplatelet therapy Obtain lipid panel Increase activity as tolerated Patient may be discharged home this afternoon if he remains stable Patient scheduled for cardiac catheterization outpatient on 08/26/2022 Nurse practitioner note has been reviewed by physician. Signing provider agrees with the documented findings, assessment, and plan of care. 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 after stroke, colonoscopy with benign polypectomy. Past Anesthesia/Blood Transfusion Reactions: No Reported Reaction Date of Last Stent Placement:: 2009 Past Psychological History: Anxiety Additional Psychological History / Comment(s): Pt resides with his spouse and children. He is independent. He drives. Smoking Status: Current every day smoker Past Alcohol Use History: Rare Additional Past Alcohol Use History / Comment(s): Pt started smoking at age 15 yrs (1979). He is a 1 ppd or less smoker. Past Drug Use History: None Reported Additional Drug Use History / Comment(s): NO DRUGS IN OVER 30 YRS - Past Family History Father Family Medical History: Coronary Artery Disease (CAD) Additional Family Medical History / Comment(s): Father had CABG Mother Family Medical History: Hyperlipidemia, Hypertension Medications and Allergies Home Medications Medication Instructions Recorded Confirmed Type Atorvastatin Calcium [Lipitor] 80 mg PO HS 12/05/13 08/16/22 History Omeprazole [PriLOSEC] 20 mg PO BID 12/05/13 08/16/22 History Nitroglycerin Sl Tabs [Nitrostat] 0.4 mg SUBLINGUAL Q5M PRN #20 tab 08/16/15 08/16/22 Rx Triamterene/Hydrochlorothiazid 1 tab PO DAILY 12/31/15 08/16/22 History [Maxzide 37.5-25] Clopidogrel [Plavix] 75 mg PO DAILY #30 tab 01/02/16 08/16/22 Rx Aspirin 325 mg PO DAILY 06/21/16 08/16/22 History Isosorbide Mononitrate ER [Imdur] 30 mg PO DAILY 08/03/22 08/16/22 History Testosterone Cypionate 50 mg IM MO 08/16/22 08/16/22 History [Depo-Testosterone] atenoloL [Tenormin] 50 mg PO BID 08/16/22 08/16/22 History Allergies Allergy/AdvReac Type Severity Reaction Status Date / Time buprenorphine [From Jennifer] Allergy Swelling Verified 08/16/22 22:39 Physical Exam Vitals: Vital Signs Temp Pulse Pulse Resp BP BP Pulse Ox 08/17/22 06:54 97.7 F 63 16 123/76 95 08/17/22 01: 97.8 F 72 17 104/63 95 08/16/22 22:00 71 16 120/87 97 08/16/22 21:00 77 16 116/84 98 08/16/22 20:00 77 16 123/85 95 08/16/22 18:55 98 F 78 18 144/75 98 Intake and Output 08/16/22 08/17/22 08/17/22 22:59 06:59 14:59 Other: Voiding Method Toilet # Voids 1 Weight 97.069 kg 97.069 kg Results 08/17/22 06:19 08/17/22 06:19 Cardiac Enzymes 08/16/22 08/16/22 08/17/22 Range/Units 19:41 19:41 06:19 AST 35 (17-59) U/L Troponin I <0.012 <0.012 (0.000-0.034) ng/mL Coagulation 08/16/22 08/17/22 Range/Units 19:41 06:19 PT 9.6 (9.0-12.0) sec APTT 23.4 40.1 H (22.0-30.0) sec CBC 08/16/22 08/17/22 Range/Units 19:41 06:19 WBC 8.4 7.4 (3.8-10.6) k/uL RBC 5.54 5.41 (4.30-5.90) m/uL Hgb 16.0 15.4 (13.0-17.5) gm/dL Hct 47.2 46.6 (39.0-53.0) % Plt Count 223 197 (150-450) k/uL Comprehensive Metabolic Panel 08/16/22 08/17/22 Range/Units 19:41 06:19 Sodium 141 140 (137-145) mmol/L Potassium 3.6 3.9 (3.5-5.1) mmol/L Chloride 105 107 (98-107) mmol/L Carbon Dioxide 30 29 (22-30) mmol/L BUN 32 H 29 H (9-20) mg/dL Creatinine 1.11 1.08 (0.66-1.25) mg/dL Glucose 114 H 103 H (74-99) mg/dL Calcium 9.3 8.6 (8.4-10.2) mg/dL AST 35 (17-59) U/L ALT 43 (4-49) U/L Alkaline Phosphatase 97 (38-126) U/L Total Protein 7.0 (6.3-8.2) g/dL Albumin 4.3 (3.5-5.0) g/dL Current Medications Generic Name Dose Route Start Last Admin Trade Name Freq PRN Reason Stop Dose Admin Albuterol/Ipratropium 3 ml 08/16/22 22:21 Ipratropium-Albuterol 3 Ml Neb INHALATION RT-QID PRN Shortness Of Breath Atenolol 50 mg 08/16/22 22:30 08/16/22 23:34 Atenolol 25 Mg Tab PO 50 mg BID DEREK Administration Atorvastatin Calcium 80 mg 08/16/22 22:30 08/16/22 23:35 Atorvastatin 80 Mg Tab PO 80 mg HS DEREK Administration Clopidogrel Bisulfate 75 mg 08/17/22 09:00 Clopidogrel 75 Mg Tab PO DAILY DEREK Heparin Sodium (Porcine) 0 unit 08/17/22 00:16 Heparin Sodium 1,000 Un/Ml (10ml Vl) IV PER PROTOCOL PRN Low PTT Protocol Heparin Sodium/Sodium Chloride 250 mls @ 10.008 mls/hr 08/17/22 00:30 01:06 25,000 unit/ Sodium Chloride IV 10.31 units/kg/hr .Q24H DEREK 10.008 mls/hr Administration Protocol 10.31 UNITS/KG/HR Isosorbide Mononitrate 30 mg 08/17/22 09:00 Isosorbide Mononitrate Er 30 Mg Tab.Er.24h PO DAILY DEREK Naloxone HCl 0.2 mg 08/16/22 22:19 Naloxone 0.4 Mg/Ml 1 Ml Vial IV Q2M PRN Opioid Reversal Pantoprazole Sodium 40 mg 08/16/22 22:30 08/16/22 23:35 Pantoprazole 40 Mg Tablet PO 40 mg BID DEREK Administration Triamterene/Hydrochlorothiazide 1 each 08/17/22 09:00 Triamterene-Hctz 37.5-25mg 1 Each Tab PO DAILY DEREK Intake and Output 08/16/22 08/17/22 08/17/22 22:59 06:59 14:59 Other: Voiding Method Toilet # Voids 1 Weight 97.069 kg 97.069 kg 08/17/22 06:19 08/17/22 06:19
--- NOTE | 2022-08-17 13:54 | P.DS ---
Providers Date of admission: 08/16/22 22:20 Expected date of discharge: 08/17/22 Attending physician: Yaniv Ortega MD Consults: 08/16/22 22:19 Consult Physician Routine Consulting Provider: [facility] Consult Reason/Comments: chest pain Do you want consulting provider notified?: Yes, Notify in am Primary care physician: [facility] Course: The patient is a 49-year-old male with a PMH of CAD status post multiple stents, recently underwent stenting of left circumflex and RCA on 08/06/22, COPD, hypertension, hyperlipidemia who presented to the emergency room with complaints of chest pain. The patient reports that his chest pain started shortly after he began working out, lifting weights earlier today. He reports that it is left- sided, pressure-like, 8 out of 10 on maximal intensity prior to arrival, currently 4 out of 10, nonradiating, with some associated shortness of breath. Denies experiencing nausea, vomiting, palpitations, or dizziness. Also denied lower extremity swelling or pain. States that his symptoms are very similar to his prior episodes of [place]. EKG emergency room revealed sinus rhythm at 75 bpm with Q waves in lead 2, and V5 to V6. Laboratory evaluation is remarkable for troponin less than 0.012 with chest x-ray unremarkable. The case was discussed in detail with the ED physician. The patient reports compliance with aspirin and Plavix at home since the stent placements. Troponins were trended and ACS was ruled out. Cardiology was consulted and recommended no further workup. Heparin drip was discontinued. Patient was cleared from cardiology perspective. Patient was seen and examined. No acute events overnight. Patient reports soreness over his left chest worsened with movement of his left arm. Pertinent studies include chest x-ray. Physical examination: General: non toxic, no distress, appears at stated age, normal weight Derm: no unusual rashes/lesions, warm Head: atraumatic, normocephalic, symmetric Eyes: EOMI, no lid lag, anicteric sclera, pupils equal round reactive to light ENT: Nose and ears atraumatic Neck: No cervical lymphadenopathy, trachea midline, supple Mouth: no lip lesion, mucus membranes moist Cardiovascular: S1S2 reg, no murmur, positive dorsalis pedis pulse bilateral, no edema Lungs: CTA bilateral, no rhonchi, no rales, no accessory muscle use Abdominal: soft, nontender to palpation, no guarding Ext: muscle strength 5 out of 5 in all 4 extremities grossly, no gross muscle atrophy, no contractures, Neuro: CN II-XI grossly intact, no gross focal neuro deficits Psych: Alert, oriented, appropriate affect Discharge diagnosis: Chest pain, likely musculoskeletal History of CAD Chronic conditions: COPD, hypertension, hyperlipidemia Patient be discharged home with the following instructions: Diet: Cardiac FU PCP within 1-2 days of discharge FU Cardiology within 1 week of discharge Take all medications as advised. Come back to the ED for chest pain, shortness of breath Patient Condition at Discharge: Stable Plan - Discharge Summary New Discharge Prescriptions: New Aspirin 81 mg PO DAILY #30 tab Continue Omeprazole [PriLOSEC] 20 mg PO BID Atorvastatin Calcium [Lipitor] 80 mg PO HS Nitroglycerin Sl Tabs [Nitrostat] 0.4 mg SUBLINGUAL Q5M PRN #20 tab PRN Reason: Chest Pain Triamterene/Hydrochlorothiazid [Maxzide 37.5-25] 1 tab PO DAILY Clopidogrel [Plavix] 75 mg PO DAILY #30 tab atenoloL [Tenormin] 50 mg PO BID Isosorbide Mononitrate ER [Imdur] 30 mg PO DAILY Testosterone Cypionate [Depo-Testosterone] 50 mg IM MO Discontinued Aspirin 325 mg PO DAILY Discharge Medication List Atorvastatin Calcium [Lipitor] 80 mg PO HS 12/05/13 [History] Omeprazole [PriLOSEC] 20 mg PO BID 12/05/13 [History] Nitroglycerin Sl Tabs [Nitrostat] 0.4 mg SUBLINGUAL Q5M PRN #20 tab 08/16/15 [Rx] Triamterene/Hydrochlorothiazid [Maxzide 37.5-25] 1 tab PO DAILY 12/31/15 [History] Clopidogrel [Plavix] 75 mg PO DAILY #30 tab 01/02/16 [Rx] Isosorbide Mononitrate ER [Imdur] 30 mg PO DAILY 08/03/22 [History] Testosterone Cypionate [Depo-Testosterone] 50 mg IM MO 08/16/22 [History] atenoloL [Tenormin] 50 mg PO BID 08/16/22 [History] Aspirin 81 mg PO DAILY #30 tab 08/17/22 [Rx] Follow up Appointment(s)/Referral(s): Devyn Corey MD [STAFF PHYSICIAN] - 1 Week Ko Abbott DO [Primary Care Provider] - 1-2 days Activity/Diet/Wound Care/Special Instructions: Diet: Cardiac FU PCP within 1-2 days of discharge FU Cardiology within 1 week of discharge Take all medications as advised. Come back to the ED for chest pain, shortness of breath Discharge Disposition: HOME SELF-CARE
[2022-08-17 19:20] LABS: Chol/HDL Ratio 3.17 Ratio; LDL Cholesterol,Calculated 106.8 mg/dL (0.0-131.0); VLDL Calculation 18.48 mg/dL (5.00-40.00)
== END 2022-08-17 11:45 | disposition home or self-care (01) ==
LOC: EC 18:49 → 6NMEDSUR 22:20
PROVIDERS: ADMIT Internal Medicine; ATTEND Internal Medicine
DX: R07.89 Other chest pain (principal); I25.10 Atherosclerotic heart disease of native coronary artery without angina pectoris; J44.9 Chronic obstructive pulmonary disease, unspecified; I10 Essential (primary) hypertension; E78.5 Hyperlipidemia, unspecified; K21.9 Gastro-esophageal reflux disease without esophagitis; G47.30 Sleep apnea, unspecified; I25.2 Old myocardial infarction; F41.9 Anxiety disorder, unspecified; F17.200 Nicotine dependence, unspecified, uncomplicated; Z86.73 Personal history of transient ischemic attack (TIA), and cerebral infarction without residual deficits; Z95.5 Presence of coronary angioplasty implant and graft; Z79.899 Other long term (current) drug therapy; Z79.82 Long term (current) use of aspirin; Z79.02 Long term (current) use of antithrombotics/antiplatelets; Z82.49 Family history of ischemic heart disease and other diseases of the circulatory system
CPT/HCPCS: 96374; 99285; 36415; 93005; 80061; 80053; 80048; 83735; 84484 ×2; 85025 ×2; 85610; 85730 ×2; 71046; G0378 ×3; J1644 ×2

== ENCOUNTER 2022-08-26 10:00 | Day surgery (SDC) | payer MEDICARE ==
[2022-08-23 15:25] VITALS: BMI 33.6
[~2022-08-26 10:00] MED LIST: ALPRAZolam 0.25 MG TAB PO PRN; ALPRAZolam 0.5 MG TAB PO PRN; ASPIRIN 325 MG TAB PO STA; ATORVASTATIN 80 MG TAB PO STA; HEPARIN SODIUM,PORCINE 10,000 UNIT in SODIUM CHLORIDE 0.9% 1,000 ML IRRIGATION PRN; HEPARIN SODIUM,PORCINE 2,500 UNIT in SODIUM CHLORIDE 0.9% 250 ML IRRIGATION PRN; NITROGLYCERIN SL TABS 0.4 MG TAB SUBLINGUAL PRN
[2022-08-26] MEDS ORDERED: SODIUM CHLORIDE 0.9% 1,000 ML IV ONE (10:24)
[2022-08-26] MEDS ORDERED: HEPARIN SODIUM 1,000 UN/ML (10ML VL) ONE (11:41)
[2022-08-26] MEDS ORDERED: fentaNYL (PF) 50 MCG/ML 2 ML AMP ONE (11:41)
[2022-08-26] MEDS ORDERED: LIDOCAINE 1% INJ 10MG/ML (30 ML VIAL-PF) SQ ONE (11:43)
[2022-08-26] MEDS: fentaNYL (PF) 50 MCG/ML 2 ML AMP IV ONE ×2 (11:44→13:00)
[2022-08-26] MEDS: HEPARIN SODIUM 1,000 UN/ML (10ML VL) IV ONE ×2 (11:57→12:33)
[2022-08-26] MEDS: MIDAZOLAM 2 MG/2 ML VIAL IV ONE ×2 (11:57→12:56)
[2022-08-26] MEDS: NITROGLYCERIN 1000MCG/10ML SYRINGE INTRACORON ONE ×4 (12:36→13:15)
[2022-08-26] MEDS ORDERED: IOPAMIDOL-370 125ML BTL INJ ONE ×2 (12:56→13:25)
[2022-08-26] MEDS ORDERED: IOPAMIDOL-370 100ML BTL INJ ONE (13:26)
[2022-08-26] MEDS ORDERED: MAG HYDROX/AL HYDROX/SIMETH 30 ML CUP PO PRN (13:41)
[2022-08-26] MEDS ORDERED: ZOLPIDEM 5 MG TAB PO PRN (13:41)
[2022-08-26] MEDS ORDERED: NITROGLYCERIN SL TABS 0.4 MG TAB SUBLINGUAL PRN (13:41)
[2022-08-26] MEDS ORDERED: ATROPINE SULFATE 0.1 MG/ML 10ML SYRINGE IV PRN (13:41)
[2022-08-26] MEDS ORDERED: RX INFO: IV CONTRAST WAS GIVEN 1 EACH MISC MISCELLANE PRN (13:41)
[2022-08-26] MEDS ORDERED: SODIUM CHLORIDE 0.9% 1,000 ML in EMPTY BAG 1 BAG IV SCH (13:45)
--- NOTE | 2022-08-26 14:00 | P.CARDCATH ---
Date of Procedure: 08/26/22 Description of Procedure: Cardiac Catheterization: Asst.: Dr. Cosme The patient is a 57-year-old male with a known history of CAD, status post stenting of the left circumflex in 2009 recently presented with unstable anginal, was found to have critical stenosis in the mid left circumflex, right PDA and chronically occluded proximal LAD. He had good collaterals from the right PDA to the LAD. He underwent stenting of the right PDA and left circumflex. He continues to have symptoms of chest discomfort. Recommendations were made regarding cardiac catheterization and angioplasty of the LAD, the risks and the complications were discussed with the patient who is in full understanding and agreement. Procedure Description: Patient was brought to crown and bridge dental lab technician in fasting semi-sedated state after receiving Fentanyl and Benadryl achieiving moderate conscious sedated state. Using Xylocaine Anesthesia and Seldinger technique, a 6-Spanish sheath was introduced in the right radial artery . Subsequently using Xylocaine anesthesia in the modified Seldinger technique and micropuncture catheter was introduced and the right femoral artery and subsequently upsized to an 8-Spanish sheath. Subsequently, selective coronary angiography was performed using a 8-Spanish 4 bend EBU guiding catheter and a 5-Spanish 4 bend right Yoana was used to cannulate the right coronary artery. Multiple views of the coronary artery including hemiaxial views were obtained. The the right Yoana catheter was used to cross the aortic valve and LVEDP was calculated. After obtaining images of the right coronary artery and the collaterals a 0.014 whisper J-wire with a Corsair and a Guidliner catheter were introduced in the sy stem. Attempts to cross the total occlusion of the LAD were unsuccessful, the wire was removed and a 0.014 Fielder XTA wire was advanced and the total occlusion was crossed unconfirmed by retrograde imaging. Subsequently the Corsair was advanced and the wire was exchanged to a 0.014 BMW J wire. After removing the Corsair a 2.0 x 12 mm Treck was advanced and multiple inflations at 10 jose were done after removing the balloon a 2.5 x 15 mm NC Treck was advanced and multiple inflations at 10 jose were done. After removing the balloon an IVUS [place] catheter was advanced and images were performed. After removing the catheter 3.0 x 38 mm Xience rivera point his advanced and deployed at 14 jose, after removing the balloon 3.5 x 28 mm Xience rivera point was advanced and deployed proximally at 14 jose. Repeat IVUS imaging was performed, and 2.75 x 12 mm NC Treck was advanced and inflation distally were done at 12 jose after removing the balloon 3.75 x 15 mm NC Treck was advanced and inflations proximally were performed. Repeat IVUS imaging was done and showed successful stenting. At that point the wire was removed images were obtained and repeated and revealed successful stenting. Following that, catheter and sheath were removed. Hemostasis was obtained with deployment of TR band and deployment of an Angio- Seal in the right femoral artery. There was no immediate complication. Patient was returned to room in stable condition. Of note, the patient received a total of a 8500 units of intravenous heparin as well as intra-arterial verapamil. His ACT was monitored. He had EKG changes and chest discomfort during the procedure. His EKG changes resolved and his chest discomfort improved at the end of the procedure. He was continued on clopidogrel. Findings: Left main: This is a large size vessel, bifurcating into LAD and left circumflex, left main has no high-grade stenosis. LAD: This vessel is totally occluded proximally at the takeoff of the first septal briar wood sorter with no significant antegrade flow Left circumflex: This is a large size vessel giving rise to a large obtuse marginal branch, the stented segment is patent there is 2030% plaque distal to the stent. The second small obtuse marginal branch is chronically occluded. RCA: This is a large dominant vessel bifurcating into PDA and PLV the PDA stented segment is patent there is mild intimal disease in the distal PDA with no high-grade stenosis with good epicardial collaterals to the LAD Left Ventriculogram: Not performed Hemodynamics: There was no gradient across the aortic valve, LVEDP was 6-10 mmHg Conclusion: 1. Chronically occluded proximal LAD 2. Patent stent in the left circumflex and the RCA was chronically occluded second OM 3. Successful stenting of the chronic total occlusion of the proximal LAD with reduction of the stenosis from 100% to less than 5% with intravascular ultrasound guidance 4. Normal LVEDP Recommendations: The patient will continue on aspirin and Plavix for 6 months with aggressive coronary risks modifications will be continued.. The findings and the recommendations were discussed with the patient and the family and they were in full understanding and agreement. Duration of sedation is 100 minutes.
[2022-08-26] MEDS: SODIUM CHLORIDE 0.9% 1,000 ML in EMPTY BAG 1 BAG IV SCH ×2 (15:18→22:24)
[2022-08-26] MEDS: atenoloL 50 MG TAB PO SCH (19:56)
[2022-08-26] MEDS ORDERED: ATORVASTATIN 80 MG TAB PO SCH (21:00)
[2022-08-27] MEDS: SODIUM CHLORIDE 0.9% 1,000 ML in EMPTY BAG 1 BAG IV SCH (04:24)
[2022-08-27 08:11] VITALS: BP 108/72; PULSE 72; RESP 18; TEMP 98
[2022-08-27] MEDS: atenoloL 50 MG TAB PO SCH (08:14)
[2022-08-27 08:19] LABS: Calcium 8.7 mg/dL (8.4-10.2); Potassium 4.1 mmol/L (3.5-5.1)
--- NOTE | 2022-08-27 08:47 | P.PN ---
Subjective Progress Note Date: 08/27/22 PROGRESS NOTE The patient is a 57-year-old male with a known history of CAD, status post stenting of the left circumflex and RCA recently was chronic total occlusion of the LAD, underwent revascularization of the LAD with 2 stents yesterday. He's feeling well this morning. He denies any chest discomfort. He is ambulating without difficulty. He is in sinus mechanism. His EKG shows no acute changes. Medications: Aspirin, atenolol 50 mg twice a day, Lipitor 50 mg daily, Plavix 75 g daily, Imdur 30 mg daily. PHYSICAL EXAMINATION: Blood pressure 121/70 heart rate 70 LUNGS: Clear to auscultation HEART: Regular rate and rhythm, S1, S2. No S3. systolic ejection murmur ABDOMEN: Soft, nontender, no organomegaly EXTREMETIES: No edema, right radial pulse intact, right femoral pulse intact with no hematoma LAB: BUN 26, creatinine 1.08 IMPRESSION: 1. Status post stenting of chronic total occlusion of LAD 2. Status post stenting of left circumflex and RCA 3. Prior history of smoking 4. Hyperlipidemia PLAN: 1. Continue medical therapy 2. Increase physical activity 3. Discharged home today 4. And follow-up in one week Objective - Vital Signs Vital signs: Vital Signs Temp 98 F 08/27/22 08:00 Pulse 72 08/27/22 08:00 Resp 18 08/27/22 08:00 BP 108/72 08/27/22 08:00 Pulse Ox 85 L 08/27/22 08:00 FiO2 Intake & Output 08/26/22 08/27/22 08/27/22 18:59 06:59 18:59 Intake Total 400 1970 120 Balance 400 1970 120 Weight 97.8 kg Intake: IV 400 Sodium Chloride 0.9% 1, 100 000 ml In Empty Bag 1 bag @ 1 ML/KG/HR 97.8 mls/hr IV .[id number] DEREK Rx#: [id number] Intake, IV Titration 1000 Amount Sodium Chloride 0.9% 1, 1000 000 ml In Empty Bag 1 bag @ 1 ML/KG/HR 97.8 mls/hr IV .[id number] DEREK Rx#: [id number] Oral 970 120 Other: Voiding Method Toilet # Voids 0 1 - Labs CBC & Chem 7: 08/27/22 06:52 Labs: Abnormal Lab Results - Last 24 Hours (Table) 08/27/22 Range/Units 06:52 BUN 26 H (9-20) mg/dL
[2022-08-27] MEDS ORDERED: ASPIRIN 81 MG PO SCH (09:00)
[2022-08-27] MEDS ORDERED: CLOPIDOGREL 75 MG TAB PO SCH (09:00)
[2022-08-27] MEDS ORDERED: ISOSORBIDE MONONITRATE ER 30 MG TAB.ER.24H PO SCH (09:00)
== END 2022-08-27 10:09 | disposition home or self-care (01) ==
LOC: CATHCVL 10:00 → 3SCARD 13:23 → CATHCVL 08-27 10:09
PROVIDERS: ATTEND Internal Medicine Interventional Cardiology
DX: I25.110 Atherosclerotic heart disease of native coronary artery with unstable angina pectoris (principal); Z95.5 Presence of coronary angioplasty implant and graft; I25.82 Chronic total occlusion of coronary artery; E78.5 Hyperlipidemia, unspecified; I10 Essential (primary) hypertension; I73.9 Peripheral vascular disease, unspecified; F17.210 Nicotine dependence, cigarettes, uncomplicated; E78.00 Pure hypercholesterolemia, unspecified; Z79.82 Long term (current) use of aspirin; Z79.899 Other long term (current) drug therapy; Z79.02 Long term (current) use of antithrombotics/antiplatelets; Z82.49 Family history of ischemic heart disease and other diseases of the circulatory system; Z79.83 Long term (current) use of bisphosphonates; Z88.8 Allergy status to other drugs, medicaments and biological substances; Z98.62 Peripheral vascular angioplasty status; Z86.73 Personal history of transient ischemic attack (TIA), and cerebral infarction without residual deficits
CPT/HCPCS: 94760; 92978; 93458; 80048; C9607; C1769 ×6; C1760; C1894 ×2; C1887; C1725 ×4; C1753; C1874 ×2; C1751; J2250; J2001; J3010; J1644; Q9967 ×2

== ENCOUNTER → 2023-04-08 | Outpatient (CLI) | payer MEDICARE ==
[2023-04-08 18:24] LABS: African American GFR (CKD) 65 (>60 ml/min/1.73 sqM); Blood Urea Nitrogen 28 mg/dL (9-20); Non-African American GFR(CKD) 57 (>60 ml/min/1.73 sqM)
--- NOTE | 2023-04-11 20:27 | CT ---
EXAMINATION TYPE: CT angio chest CT DLP: 881.5 mGycm, Automated exposure control for dose reduction was used. 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 TECHNIQUE/CONTRAST: CTA scan of the thorax is performed without and with IV Contrast, patient injected with 80 cc with sa line mL of Isovue 370, MIP images are created and reviewed these are created on a separate workstatio n.. FINDINGS: Lungs/Pleura: Mild centrilobular emphysema changes. No evidence of focal consolidation, pleural effus ion or pneumothorax. Left upper lung calcified granuloma. Airway: Large airways are patent. Heart: Heart is within normal limits for size. Coronary stent grafts first dense calcifications. Vasculature: No evidence for intrarenal hematoma noncontrast imaging. No evidence for intimal flap to suggest dissection. The ascending thoracic aorta is ectatic measuring up to 4.3 cm with smooth taper ing. No evidence for pulmonary arterial filling defect to suggest the pulmonary trunk is within dao l limits for size.. Mediastinum: No gross evidence of adenopathy. Musculoskeletal: Mild degenerative disc disease changes are present throughout the thoracolumbar spin e. Soft Tissues: Unremarkable. Lower neck: No significant findings. Upper Abdomen: Right renal cyst is present. IMPRESSION: 1. Similar ascending thoracic aorta ectasia measuring up to 43 mm. 2. Mild emphysema.
== END | disposition home or self-care (01) ==
LOC: RADCTMAIN 17:31
PROVIDERS: ATTEND Internal Medicine Interventional Cardiology
DX: I71.21 Aneurysm of the ascending aorta, without rupture (principal); J43.9 Emphysema, unspecified
CPT/HCPCS: 82565; 84520; 71275; 36415; Q9967